=== PATIENT | female | born 1950 | race African-American/Black ===

== ENCOUNTER 2016-12-12 11:01 | Inpatient (IN) | payer MEDICARE, MEDICAID ==
[~2016-12-12] VITALS: Ht 162.6 cm; Wt 138.4 kg
[2016-12-12] MEDS ORDERED: ASPIRIN 81MG TABLET PO ONE (12:00)
[2016-12-12 12:32] LABS: BASOPHILS % 0.7 % (0.0-2.0); EOSINOPHILS % 2.3 % (0.0-5.0); HEMATOCRIT. 33.5 % (36.0-48.0); HEMOGLOBIN. 10.9 g/dL (12.0-16.0); LYMPHOCYTES % 27.7 % (20.0-50.0); MEAN CORPUSCULAR HEMOGLOBIN 26.4 pg (28.0-32.0); MEAN CORPUSCULAR VOLUME 81.3 fL (81.0-99.0); MEAN PLATELET VOLUME 7.5 fl (7.4-10.4); MONOCYTES % 4.4 % (2.0-8.0); NEUTROPHILS % 64.9 % (40.0-76.0); PLATELET 334 x1000/uL (130-400); RED BLOOD CELL COUNT 4.12 mill/uL (4.2-5.4); RED CELL DISTRIBUTION WIDTH 15.8 % (11.6-14.6)
[2016-12-12 12:39] LABS: PROTHROMBIN TIME 10.7 sec
[2016-12-12 12:48] LABS: CARBON DIOXIDE 31 mEq/L (21-32); CHLORIDE 105 mEq/L (98-107)
[2016-12-12 12:50] LABS: TROPONIN I < 0.02 ng/mL (0.00-0.04)
[2016-12-12] MEDS ORDERED: METF500T4 PO (18:45)
[2016-12-12] MEDS ORDERED: LISI-604 PO (18:46)
[2016-12-12] MEDS ORDERED: OMEP20CA10 PO (18:46)
[2016-12-12] MEDS ORDERED: CLAR10 PO (18:46)
[2016-12-12 20:32] VITALS: BP 146/82
[2016-12-12 20:39] VITALS: BP 146/82
[2016-12-12 22:13] VITALS: BP 137/75
[2016-12-13] VITALS (7 sets, daily range): BP systolic 123–156; BP diastolic 68–85
[2016-12-13] MEDS ORDERED: OMEPRAZOLE 20MG CAPSULE EXTENDED RELEASE PO SCH (06:50)
[2016-12-13] MEDS ORDERED: METFORMIN HCL 850MG TABLET PO SCH (07:20)
[2016-12-13 07:37] LABS: HEMATOCRIT 36.9 % (36.0-48.0); HEMOGLOBIN 11.7 g/dL (12.0-16.0); MEAN CORPUSCULAR HEMOGLOBIN 26.4 pg (28.0-32.0); MEAN CORPUSCULAR VOLUME 83.7 fL (81.0-99.0); PLATELET 344 x1000/uL (130-400); RED BLOOD CELL COUNT 4.41 mill/uL (4.2-5.4); RED CELL DISTRIBUTION WIDTH 16.1 % (11.6-14.6)
[2016-12-13] MEDS ORDERED: METOPROLOL TARTRATE 25MG TABLET PO SCH (09:00)
[2016-12-13] MEDS ORDERED: ASPIRIN 325MG EC TABLET PO SCH (09:00)
[2016-12-13] MEDS ORDERED: MAGNESIUM/ALUMINUM HYDROXIDE/SIMETHICONE 30ML UDC PO SCH (09:00)
[2016-12-13] MEDS ORDERED: LANS1COM PO (10:37)
[2016-12-13] MEDS ORDERED: LISI-604 PO (10:37)
== END 2016-12-13 11:40 | disposition home or self-care (01) | DRG 392 ==
LOC: ER 13:08 → 3WST 15:25 → ENRESERV 16:39
PROVIDERS: ADMIT Internal Medicine; ATTEND Internal Medicine
DX: K21.9 Gastro-esophageal reflux disease without esophagitis (principal); R07.89 Other chest pain; E11.9 Type 2 diabetes mellitus without complications; I10 Essential (primary) hypertension; Z79.4 Long term (current) use of insulin; Z79.84 Long term (current) use of oral hypoglycemic drugs; Z88.8 Allergy status to other drugs, medicaments and biological substances; Z79.899 Other long term (current) drug therapy
CPT/HCPCS: 36415; 71010; 80053; 82962; 83690; 83880; 84484; 85025; 85027; 85610; 93005; 99285

== ENCOUNTER 2017-05-20 13:31 | Emergency (ER) | payer MEDICARE, MEDICAID ==
[~2017-05-20] VITALS: Ht 162.6 cm; Wt 138.0 kg
[~2017-05-20 13:31] MED LIST: CLAR10 PO; LANS1COM PO; LISI-604 PO; METF500T4 PO
[2017-05-20 15:54] LABS: CHLORIDE 105 mEq/L (98-107)
[2017-05-20 15:55] LABS: BASOPHILS % 1.1 % (0.0-2.0); EOSINOPHILS % 2.4 % (0.0-5.0); HEMATOCRIT. 34.9 % (36.0-48.0); HEMOGLOBIN. 11.3 g/dL (12.0-16.0); LYMPHOCYTES % 24.3 % (20.0-50.0); MEAN CORPUSCULAR HEMOGLOBIN 26.7 pg (28.0-32.0); MEAN CORPUSCULAR VOLUME 82.5 fL (81.0-99.0); MEAN PLATELET VOLUME 7.5 fl (7.4-10.4); MONOCYTES % 4.4 % (2.0-8.0); NEUTROPHILS % 67.8 % (40.0-76.0); PLATELET 399 x1000/uL (130-400); RED BLOOD CELL COUNT 4.24 mill/uL (4.2-5.4); RED CELL DISTRIBUTION WIDTH 15.3 % (11.6-14.6)
[2017-05-20 15:56] LABS: PROTHROMBIN TIME 10.7 sec (9.4-11.6)
[2017-05-20 16:06] LABS: CARBON DIOXIDE 31 mEq/L (21-32)
[2017-05-20 16:42] VITALS: BP 148/76
== END 2017-05-20 16:44 | disposition home or self-care (01) ==
LOC: ER 13:31
DX: L03.039 Cellulitis of unspecified toe (principal); I10 Essential (primary) hypertension; E11.9 Type 2 diabetes mellitus without complications; Z79.84 Long term (current) use of oral hypoglycemic drugs; Z79.899 Other long term (current) drug therapy
CPT/HCPCS: 36415; 71045; 80053; 83880; 85025; 85610; 93005; 99285

== ENCOUNTER 2018-02-16 14:21 | Emergency (ER) | payer MEDICARE, MEDICAID ==
[~2018-02-16] VITALS: Ht 165.1 cm; Wt 141.0 kg
[~2018-02-16 14:21] MED LIST changes: -METF500T4 PO; +METF500T6 PO
[2018-02-16 16:02] LABS: BASOPHILS % 0.2 % (0.0-2.0); EOSINOPHILS % 4.2 % (0.0-5.0); HEMATOCRIT. 36.8 % (36.0-48.0); LYMPHOCYTES % 28.5 % (20.0-50.0); MEAN CORPUSCULAR HEMOGLOBIN 27.2 pg (28.0-32.0); MEAN CORPUSCULAR VOLUME 83.4 fL (81.0-99.0); MONOCYTES % 3.1 % (2.0-8.0); PLATELET 398 x1000/uL (130-400); RED BLOOD CELL COUNT 4.41 mill/uL (4.2-5.4); RED CELL DISTRIBUTION WIDTH 15.5 % (11.6-14.6)
[2018-02-16 16:08] LABS: CHLORIDE 104 mEq/L (98-107)
[2018-02-16 17:34] VITALS: BP 140/70
== END 2018-02-16 18:21 | disposition home or self-care (01) ==
LOC: ER 14:21
DX: R00.2 Palpitations (principal); I10 Essential (primary) hypertension
CPT/HCPCS: 36415; 71045; 80053; 83880; 84484; 85025; 93005; 99285

== ENCOUNTER 2018-05-05 10:31 | Emergency (ER) | payer MEDICARE, MEDICAID ==
[~2018-05-05] VITALS: Ht 165.1 cm; Wt 136.0 kg
[~2018-05-05 10:31] MED LIST changes: +METF-414 PO; -METF500T6 PO
[2018-05-05] MEDS ORDERED: IPRATROPIUM BROMIDE (0.02%) 0.5MG/2.5ML NEB HHN STA (11:05)
[2018-05-05] MEDS ORDERED: ALBUTEROL (0.083%) 2.5MG/3ML NEB HHN STA (11:05)
[2018-05-05 12:59] VITALS: BP 126/62
== END 2018-05-05 13:10 | disposition home or self-care (01) ==
LOC: ER 10:31
DX: J45.901 Unspecified asthma with (acute) exacerbation (principal); E11.9 Type 2 diabetes mellitus without complications; I10 Essential (primary) hypertension; Z88.9 Allergy status to unspecified drugs, medicaments and biological substances; Z79.899 Other long term (current) drug therapy
CPT/HCPCS: 71045; 94640; 99283; J7611

== ENCOUNTER 2019-07-11 11:42 | Emergency (ER) | payer MEDICARE, MEDICAID ==
[~2019-07-11] VITALS: Ht 162.6 cm; Wt 138.0 kg
[2019-07-11 12:19] VITALS: BP 121/54
[2019-07-11] MEDS ORDERED: IBUPROFEN 600MG TABLET PO ONE (12:45)
[2019-07-11] MEDS ORDERED: HYDROCODONE/ACETAMINOPHEN 5/325MG TABLET PO ONE (16:30)
== END 2019-07-11 16:53 | disposition home or self-care (01) ==
LOC: ER 15:47
DX: S92.912A Unspecified fracture of left toe(s), initial encounter for closed fracture (principal); E11.9 Type 2 diabetes mellitus without complications; I10 Essential (primary) hypertension; Z88.3 Allergy status to other anti-infective agents; Z79.899 Other long term (current) drug therapy; W22.8XXA Striking against or struck by other objects, initial encounter; Y93.89 Activity, other specified; Y92.89 Other specified places as the place of occurrence of the external cause; Y99.8 Other external cause status
CPT/HCPCS: 73630; 99283

== ENCOUNTER 2019-10-14 13:26 | Emergency (ER) | payer MEDICARE, MEDICAID ==
[~2019-10-14] VITALS: Ht 162.6 cm; Wt 136.0 kg
[2019-10-14 13:39] VITALS: BP 145/100
== END 2019-10-14 15:35 | disposition left against medical advice (07) ==
LOC: ER 13:26
DX: K80.80 Other cholelithiasis without obstruction (principal); Z53.21 Procedure and treatment not carried out due to patient leaving prior to being seen by health care provider

== ENCOUNTER 2020-03-31 22:23 | Emergency (ER) | payer MEDICARE, MEDICAID ==
[~2020-03-31] VITALS: Ht 165.1 cm; Wt 136.0 kg
[2020-04-01 00:15] VITALS: BP 148/76
[2020-04-01] MEDS ORDERED: ACETAMINOPHEN 325MG TABLET PO ONE (00:30)
[2020-04-01] MEDS ORDERED: BACITRACIN 15GM TUBE TOP ONE (01:30)
== END 2020-04-01 02:22 | disposition home or self-care (01) ==
LOC: ER 22:23
DX: S80.11XA Contusion of right lower leg, initial encounter (principal); W26.8XXA Contact with other sharp object(s), not elsewhere classified, initial encounter; W10.8XXA Fall (on) (from) other stairs and steps, initial encounter; Y93.01 Activity, walking, marching and hiking; Y92.015 Private garage of single-family (private) house as the place of occurrence of the external cause; I10 Essential (primary) hypertension; E11.9 Type 2 diabetes mellitus without complications; Z79.899 Other long term (current) drug therapy; Z79.84 Long term (current) use of oral hypoglycemic drugs
CPT/HCPCS: 73590; 99283